=== PATIENT | female | born 1960 | race American Indian/Alaskan Native ===

== ENCOUNTER 2017-09-07 11:23 | Outpatient (CLI) | payer MEDICARE ==
--- NOTE | 2017-09-07 12:47 | Mammography Report ---
BONE DEXA:09/07/17 11:23:00 CLINICAL: Postmenopausal. No comparison. TECHNIQUE: Two site bone DEXA performed on an Hologic scanner. FINDINGS: The average BMD of the lumbar spine L1-L4 is 0.774g/cm squared with a T-score of -2.5 and a Z-score of -2.1. The average BMD of the left hip is 0.783g/cm squared with a T-score of -1.3 and a Z-score of -0.9. The left femoral neck BMD is 0.64g/cm squared with a T score of -2.0 and a Z score of -1.4. IMPRESSION: 1. WHO classification: Osteoporosis with high fracture risk based on lumbar spine measurements. 2. WHO classification: Osteopenia with increased fracture risk based on left femoral neck measurements. RECOMMENDATION: Clinical correlation and routine screening. DEFINITIONS: BMD = Bone Mineral Density T-score = BMD related to mean peak bone mass of young adult (mean expressed in Standard Deviation) Z-score = Age matched BMD expressed in SD World Health Organization (WHO) Diagnostic Criteria Normal T-score > -1 SD Osteopenia T-score between -1 and -2.4 SD Osteoporosis T-score -2.5 SD or below NOTE: BMD is not the only risk factor for fracture. One should also consider factors such as the patient's age, risk of falling, previous osteoporotic fracture, family history of osteoporotic fractures, current smoker, and low body weight. Z-scores are not calculated if >80 years of age.
--- NOTE | 2017-09-07 13:38 | Mammography Report ---
BILATERAL DIGITAL SCREENING MAMMOGRAM WITH CAD: 09/07/17 00:00:00 CLINICAL: Routine screening.Breast cancer survivor status post right mastectomy with TRAM reconstruction and status post left benign stereotactic biopsy for calcifications . COMPARISON:01/21/10 FINDINGS: The left breast is mostly fatty with a few residual fibroglandular densities. A left biopsy clip at 1 o'clock approximately 6 cm from the nipple. No mass, architectural distortion or suspicious calcifications. Normal appearance of the right TRAM reconstruction. IMPRESSION: No mammographic evidence of malignancy. BI-RADS CATEGORY: 2 -- Benign RECOMMENDATION: Routine mammographic screening in one year. COMMENT: Patient follow-up letters are generated by our [employer] application.
== END 2017-09-07 11:24 | disposition home or self-care (01) ==
LOC: MAMMO 11:23 → SPVWC 11:23 → MAMMO 11:24
PROVIDERS: ATTEND Nurse Practitioner Family
DX: Z12.31 Encounter for screening mammogram for malignant neoplasm of breast (principal); Z13.820 Encounter for screening for osteoporosis; F17.210 Nicotine dependence, cigarettes, uncomplicated; Z78.0 Asymptomatic menopausal state
CPT/HCPCS: 77067; 77080

== ENCOUNTER 2018-09-08 11:37 | Outpatient (CLI) | payer MEDICARE ==
--- NOTE | 2018-09-08 14:52 | Mammography Report ---
LEFT DIGITAL SCREENING MAMMOGRAM : 09/08/18 11:37:00 CLINICAL: Routine screening. Breast cancer survivor status post right mastectomy with TRAM reconstruction and status post left benign stereotactic biopsy of calcifications. COMPARISON:09/07/17 FINDINGS: The breast is heterogeneously dense with a stable pattern. An upper outer biopsy clip.No mass, suspicious architectural distortion or suspicious calcifications. IMPRESSION: No mammographic evidence of malignancy. BI-RADS CATEGORY: 2 -- Benign RECOMMENDATION: Routine screening in one year. ACR BI-RADS MAMMOGRAPHIC CODES: 0 = Needs additional imaging evaluation; 1 = Negative; 2 = Benign; 3 = Probably benign; 4 = Suspicious; 5 = Malignant; 6 = Known biopsy-proven malignancy COMMENT: 1. Dense breast tissue, i.e., adenosis, fibrocystic changes, etc., may obscure an underlying neoplasm. 2. Approximately 10% of cancers are not detected with mammography. 3. A negative mammography report should not delay biopsy if a clinically suspicious mass is present. COMMENT: Patient follow-up letters are generated via our [employer] application.
== END 2018-09-08 11:38 | disposition home or self-care (01) ==
LOC: SPVWC 11:37
PROVIDERS: ATTEND Internal Medicine Hematology & Oncology
DX: Z12.31 Encounter for screening mammogram for malignant neoplasm of breast (principal)

== ENCOUNTER 2019-09-25 09:48 | Outpatient (CLI) | payer MEDICARE ==
--- NOTE | 2019-09-25 17:47 | Mammography Report ---
DIGITAL SCREENING MAMMOGRAM WITH CAD, 09/25/2019 INDICATION: Routine screening mammography. TECHNIQUE: Digital left 2D mammography was obtained in the craniocaudal and mediolateral oblique pro jections. This examination was interpreted with the benefit of Computer-Aided Detection analysis. COMPARISON: 09/08/2018. FINDINGS: Breast Density: There are scattered areas of fibroglandular density. There is no evidence of dominant mass, suspicious calcifications or architectural distortion in the l eft breast. IMPRESSION: Follow up recommendation: Routine yearly BI-RADS Category 1: Negative. A "normal" or negative report should not discourage follow up or biopsy of a clinically significant f inding. A written summary of these findings will be mailed to the patient. The patient will be entered into a mammography reporting system which will generate a reminder letter for the patient's next appointmen t at the appropriate interval. The [employer] recommends yearly mammograms starting at age 40 and continuing as l haily as a woman is in good health. Breast MRI is recommended for women with an approximate 20-25% or greater lifetime risk of breast cancer, including women with a strong family history of breast or ova pratibha cancer or who have been treated for Hodgkin's disease. Signer Name: Ok Castro MD Signed: 09/25/2019 5:42 PM Workstation Name: [id number]
== END 2019-09-25 09:49 | disposition home or self-care (01) ==
LOC: SPVWC 09:48
PROVIDERS: ATTEND Internal Medicine Hematology & Oncology
DX: Z12.31 Encounter for screening mammogram for malignant neoplasm of breast (principal)